=== PATIENT | male | born 1965 | race Native Hawaiian/Other Pacific Islander ===

== ENCOUNTER 2020-12-12 12:46 | Day surgery (SDC) | payer OTHER, SELFPAY ==
[2020-12-12 12:18] VITALS: BP 197/111; PULSE 82; RESP 18; TEMP 36.6; O2SAT 97; BMI 25.8
[2020-12-12 12:33] VITALS: BP 181/103; PULSE 77; RESP 18; TEMP 36.6; O2SAT 98
--- NOTE | 2020-12-12 12:38 | HO.ANESPROP2 ---
[facility] [place] Past Medical History Medical History Depression Elevated cholesterol Gout HTN (hypertension) Post traumatic stress disorder (PTSD) Social History Social History Smoking Status: Current every day smoker Tobacco Type: Cigarette Cigarettes Per Day: 10 Use of substances other than those prescribed or required for medical reasons: No Have you been hit, kicked, punched, or otherwise hurt by someone within the past year? If so, by whom?: No Advance Directives: No Advance Directives Information Provided: No Recently lost weight without trying: No Meds Allergies Allergy/AdvReac Type Severity Reaction Status Date / Time No Known Allergies Allergy Unverified 06/28/20 14:55 Home Medications Medication Instructions Recorded Confirmed Last Taken Type allopurinol 100 mg PO DAILY 12/06/20 12/06/20 Unknown History cholecalciferol (vitamin D3) 25 mcg PO DAILY 12/06/20 12/06/20 Unknown History [Vitamin D3] naproxen 250 mg PO BID PRN 12/06/20 12/06/20 Unknown History Exam Exam Date and Time: December 12, 2020 1238 Height,Weight and Vital Signs: Height 5 ft 6 in Weight 72.575 kg Last Vital Signs Temp 98 F 12/12/20 12:33 Pulse 77 12/12/20 12:33 Resp 18 12/12/20 12:33 BP 181/103 H 12/12/20 12:33 Pulse Ox 98 12/12/20 12:33 Airway Mallampati Class: II TM Dist: >3cm Neck ROM: Full Assessment and Plan Assessment Anesthesia Assessment: Anesthesia Plan Discussed and Chart Reviewed Final Anesthetic Review NPO: Yes ASA Class: II Final Preanesthetic Review: No Changes in Pt Med Stat, Meds/Allgs Chart Reviewed, Consent Obtained/Reviewed and Anes Risks/Benef Reviewed Patient Risk: Low Procedure Risk: Low Assessment/Block/Sedation in SS: Assess/Block/Sedation-SS Anesthetic Plan Anesthetic Plan: MAC: Disposition: Standard PACU
[2020-12-12] MEDS: Lactated Ringers 1,000 ML 20 ML IVCONT (12:45)
[2020-12-12] MEDS: Metoprolol Tartrate 5 MG/5 ML VIAL IV (12:47)
--- NOTE | 2020-12-12 12:54 | PC.NURSE ---
patient recieved 5mg metoprolol iv for b/p 197/11 and 187/111 pt asymptomatic pwd nad
[2020-12-12 12:56] VITALS: BP 179/98; PULSE 58; RESP 18; TEMP 36.9; O2SAT 98
--- NOTE | 2020-12-12 12:59 | MHC.SHP ---
Pre-Procedural Eval Section A The patient is an INPATIENT: No Changes since office visit: No Cold of Flu in the past 2 weeks, No New Medical Problems, No Changes in Medication and No Patient answered all questions The History & Physical has been completed within 30 days and I have reviewed it.: Yes Section B Chief Complaint: screening Allergies: Allergies Allergy/AdvReac Type Severity Reaction Status Date / Time No Known Allergies Allergy Unverified 06/28/20 14:55 Plan I have reviewed the history and physical and performed a pertinent physical examination on my patient. No changes have occurred unless specified.
[2020-12-12 13:01] VITALS: BP 175/93; PULSE 59; RESP 18; O2SAT 96
--- NOTE | 2020-12-12 13:04 | PC.NURSE ---
dr morales aware of b/p and meds given. speaking to patient concerning b/p and careplan pt verbalized understanding
--- NOTE | 2020-12-12 13:10 | PC.NURSE ---
Addendum entered by Porsha Aguilera RN 12/12/20 13:23: anesthesia at bedside during med administration Original Note: late entry patient on cardiacs monitor throughout his stay to check for changes in rhythm and closely monitor his vital signs
--- NOTE | 2020-12-12 13:36 | PM.OP ---
Brief Operative Note Date of Service: 12/12/20 Pre-op diagnosis: screening Post-op diagnosis: same (normal) Procedure: colonoscopy Surgeon: Stefano Oakes Anesthesia: MAC Estimated blood loss (mL): 5 Pathology: other (rectal biopsies) Condition: stable Disposition: PACU
[2020-12-12 13:40] VITALS: BP 126/67; PULSE 58; RESP 20; TEMP 36.8; O2SAT 98
[2020-12-12 13:55] VITALS: BP 163/90; PULSE 57; RESP 17; TEMP 36.8; O2SAT 98
--- NOTE | 2020-12-12 15:01 | OP_ITS ---
SURGEON: Stefano Oakes MD PREOPERATIVE DIAGNOSIS: POSTOPERATIVE DIAGNOSIS: PROCEDURE PERFORMED: Colonoscopy to the terminal ileum with biopsy. ESTIMATED BLOOD LOSS: COMPLICATIONS: ANESTHESIA: ASSISTANTS: SPECIMENS: INDICATION: Colon cancer screening. MEDICATIONS: Monitored anesthesia care. DESCRIPTION OF PROCEDURE: History and physical performed. The risks and benefits of the procedure were explained to the patient. Informed consent was obtained. The patient was placed in the left lateral decubitus position. A digital rectal exam was performed and was found to be normal. The Olympus pediatric video colonoscope was introduced into the rectum and advanced to the cecum without difficulty. The cecum was identified by transillumination, palpation, and identification of ileocecal valve. Examination was performed and the scope was removed. He tolerated the procedure well and was taken to recovery area in stable condition. FINDINGS: The terminal ileum was briefly examined and appeared normal. The visualized colonic mucosa was within normal limits. There was a single diverticulum identified in the right colon just above the ileocecal valve. There was some liquid stool coating mucosa in a thin manner, which was washed and suctioned as best possible. This did limit the examination for detection of small polyps. No polyps were identified. In retroflexed view of the rectum, there were a couple of small whitish plaque-like areas. Biopsies were obtained to rule out anal condyloma. IMPRESSION: Essentially normal colonoscopy. RECOMMENDATIONS: 1. Follow up the biopsy results. 2. Repeat colonoscopy is recommended in 10 years for average risk individuals. MD RUSTY Martínez/AVINASHL / [id number]
== END 2020-12-12 14:49 | disposition home or self-care (01) ==
PROVIDERS: PCP Internal Medicine; Visit Provider Internal Medicine Gastroenterology
PROC: 0DJD8ZZ Inspection of Lower Intestinal Tract, Via Natural or Artificial Opening Endoscopic (ICD-10-PCS; CPT 45378; principal; 2020-12-12 13:00)
DX: Z12.11 Encounter for screening for malignant neoplasm of colon (principal); K57.90 Diverticulosis of intestine, part unspecified, without perforation or abscess without bleeding; I10 Essential (primary) hypertension; F32.9 Major depressive disorder, single episode, unspecified; Z79.899 Other long term (current) drug therapy; F17.210 Nicotine dependence, cigarettes, uncomplicated
CPT/HCPCS: 45380; 88305

== ENCOUNTER 2021-05-15 09:07 | Outpatient (REF) | payer OTHER, SELFPAY ==
[2021-05-15 10:35] LABS: MANUAL DIFF FLAG NO
[2021-05-15 10:45] LABS: Basophils Absolute Auto 0.1 X10*3/uL (0.0-0.2); Basophils Percent Auto 1.3 % (0-2); Eosinophils Absolute Auto 0.4 X10*3/uL (0.0-0.4); Eosinophils Percent Auto 4.9 % (0-4); Hematocrit 47.1 % (42-52); Hemoglobin 16.1 g/dl (14.0-18.0); Imm Gran Abs Auto 0.02 X10*3/uL (0.00-0.03); Imm Gran Pct Auto 0.2 % (0.0-0.4); Lymphocytes Absolute Auto 2.6 X10*3/uL (1.2-4.9); Mean Corpuscular HGB Conc 34.2 g/dl (31.0-36.0); Mean Corpuscular Hemoglobin 33.8 pg (27.0-33.0); Mean Corpuscular Volume 98.7 fL (80-98); Mean Platelet Volume 9.3 fL (9.4-12.4); Monocytes Absolute Auto 0.8 X10*3/uL (0.1-1.2); Monocytes Percent Auto 9.1 % (2-11); Neutrophils Percent Auto 55.5 % (45-73); Platelet Count 328 X10*3/uL (160-400); Red Blood Count 4.77 X10*6/uL (4.60-5.80); Red Cell Distribution Width 11.9 % (11.0-16.0)
[2021-05-15 11:05] LABS: Alanine Aminotransferase 17 U/L (0-40); Albumin Level 4.2 g/dL (3.5-5.0); Alkaline Phosphatase 67 U/L (39-117); Anion Gap 17 (12-20); Aspartate Amino Transferase 27 U/L (5-37); Bilirubin Total 0.5 mg/dL (0.0-1.0); Blood Urea Nitrogen 9 mg/dL (9-16); C Reactive Protein 1.04 mg/dL (< or = 0.50); Calcium 9.5 mg/dL (8.4-10.2); Carbon Dioxide 26 mmol/L (22-29); Chloride 103 mmol/L (96-108); Estimated Glomerular Filt Rate > 60; Glucose Random 126 mg/dL (60-115); Rheumatoid Factor < 15.0 IU/mL (<15.0); Sodium 142 mmol/L (135-145); Total Protein 7.5 g/dL (6.5-8.0); Uric Acid 4.7 mg/dL (3.4-7.0)
[2021-05-15 11:38] LABS: Erythrocyte Sedimentation Rate 10 MM/HR (0-15)
[2021-05-17 16:36] LABS: Cyclic Citrullinated Peptide <16 UNITS
== END 2021-05-15 09:08 | disposition home or self-care (01) ==
LOC: HO.LAB 09:07
PROVIDERS: PCP Internal Medicine; Visit Provider Student in an Organized Health Care Education/Training Program
DX: M10.9 Gout, unspecified (principal)
CPT/HCPCS: 36415; 80053; 84550; 85025; 85652; 86140; 86200; 86431; 99202

== ENCOUNTER → 2021-05-29 08:32 | Outpatient (BNVA) | payer OTHER, SELFPAY | PROVIDERS: PCP Internal Medicine; Visit Provider Student in an Organized Health Care Education/Training Program ==

== ENCOUNTER 2021-08-27 08:38 | Outpatient (REF) | payer OTHER, SELFPAY ==
[2021-08-27 11:38] LABS: Alanine Aminotransferase 17 U/L (0-40); Albumin Level 3.8 g/dL (3.5-5.0); Alkaline Phosphatase 64 U/L (39-117); Anion Gap 12 (12-20); Aspartate Amino Transferase 23 U/L (5-37); Bilirubin Total 0.9 mg/dL (0.0-1.0); Blood Urea Nitrogen 5 mg/dL (9-16); Calcium 8.9 mg/dL (8.4-10.2); Carbon Dioxide 29 mmol/L (22-29); Chloride 100 mmol/L (96-108); Estimated Glomerular Filt Rate > 60; Glucose Random 108 mg/dL (60-115); Potassium 4.1 mmol/L (3.3-5.1); Sodium 137 mmol/L (135-145); Total Protein 6.9 g/dL (6.5-8.0)
[2021-08-27 11:54] LABS: Uric Acid 7.3 mg/dL (3.4-7.0)
== END 2021-08-27 08:39 | disposition home or self-care (01) ==
LOC: HO.LAB 08:38
PROVIDERS: Absent Provider Student in an Organized Health Care Education/Training Program; PCP Internal Medicine; Visit Provider Nurse Practitioner Family
DX: M10.9 Gout, unspecified (principal)
CPT/HCPCS: 36415; 80053; 84550; 99212